=== PATIENT | male | born 1970 | race Caucasian/White ===

== ENCOUNTER → 2017-05-11 | Outpatient (CLI) | payer OTHER ==
[2017-05-09 16:03] VITALS: BMI 30.8
[2017-05-11 13:37] VITALS: BP 156/89; PULSE 90; RESP 16
--- NOTE | 2017-05-11 14:27 | P.HPIM ---
History of Present Illness H&P Date: 05/11/17 Chief Complaint: low back pain + RLE pain and weakness This is a 46-year-old patient referred by Dr. Davis for chronic pain in low back and RLE with numbness/tingling and sensation that his RLE is giving out. Patient has been taking medications from primary care physician including [place] medications with some relief. Patient denies adverse drug effects from medications. Patient also denies new-onset weakness, bowel/bladder incontinence , or any other signs or symptoms of cauda equina syndrome. There are no signs of acute intoxication, and no indications of medication diversion or overuse. Patient notes that pain worsens significantly with standing and walking and improves with rest, ice, sitting, and medication. Patient has used several types of medications for pain, including NSAIDS, OPIOIDS, TRAMADOL. Patient HAS NOT had surgery. Patient HAS had injections previously by Dr. Mcknight with relief. Patient HAS had physical therapy recently with limited relief. In addition to above, 13-point review of systems is also negative for chest pain , shortness of breath, changes in vision, changes in hearing, new onset weakness , abdominal pain, diarrhea, extreme fatigue, malaise, fever, skin changes, homicidal or suicidal ideation, or bowel or bladder incontinence. Vital Signs: Reviewed in EMR Gen: WDWN, AAOx3, NAD HEENT: NCAT, EOMI, hearing grossly normal Pulm: resp unlabored Abd: soft, NT, ND Neck: supple, trachea midline ROM in flexion lumbar spine: reduced ROM in extension lumbar spine: reduced Lumbar paravertebral tenderness: + Facet loading: + bilateral SI joint tenderness: + R Eros's test: + R side Straight leg raise: +RLE at 5 degrees Lower extremity: decreased strength RLE dorsi/plantarflexion Neuro: CN II-XII grossly intact, muscle strength lower extremities PRESERVED Past Medical History Past Medical History: Hypertension Additional Past Medical History / Comment(s): LOWER BACK PAIN WITH RADIATION TO LEGS, PAIN IN SHINS, RIGHT FOOT AND LITTLE TOE PAIN. History of Any Multi-Drug Resistant Organisms: None Reported Additional Past Surgical History / Comment(s): SKULL FX WITH SURGERY AT 14 YRS OLD. Past Anesthesia/Blood Transfusion Reactions: No Reported Reaction Past Psychological History: Anxiety Smoking Status: Never smoker Past Alcohol Use History: None Reported Past Drug Use History: Marijuana Additional Drug Use History / Comment(s): STATES MEDICAL MARIJUANA USE. - Past Family History Mother Family Medical History: No Reported History Medications and Allergies Home Medications Medication Instructions Recorded Confirmed Type ALPRAZolam [Xanax] 1 mg PO TID 05/09/17 05/11/17 History HYDROcodone/APAP 10-325MG [[place] 1 tab PO BID 05/09/17 05/11/17 History 10-325] Vitamin B-12 1 tab PO DAILY 05/09/17 05/11/17 History amLODIPine BES/OLMESARTAN MED 1 each PO DAILY 05/09/17 05/11/17 History [Misty 10-40 mg Tablet] Allergies Allergy/AdvReac Type Severity Reaction Status Date / Time No Known Allergies Allergy Verified 05/11/17 13:20 Physical Exam Vitals: Vital Signs Pulse Resp BP Pulse Ox 05/11/17 13:24 90 16 156/89 95 Results Comments: MRI lumbar spine demonstrates posterior central disc herniation causing anterior mass effect on the thecal sac at L4-L5 with mild central canal stenosis. There are also changes of facet arthropathy and disc material extending posteriorly the L5 vertebral body. At the L5-S1 level there is a broad-based posterior disc bulge contacting proximal S1 nerve root possible expressive on the left side greater than the right side. There is circumferential extension of endplate disc complex causing foraminal encroachment as indicated on previous exam. Assessment and Plan (1) Lumbar spinal stenosis Current Visit: Yes Status: Chronic Code(s): M48.061 - SPINAL STENOSIS, LUMBAR REGION WITHOUT NEUROGENIC DYLLAN SNOMED Code(s): 56943330 (2) Lumbar disc herniation Current Visit: Yes Status: Chronic Code(s): M51.26 - OTHER INTERVERTEBRAL DISC DISPLACEMENT, LUMBAR REGION SNOMED Code(s): 200358085 (3) Chronic pain syndrome Current Visit: Yes Status: Chronic Code(s): G89.4 - CHRONIC PAIN SYNDROME SNOMED Code(s): 438693258 Plan: 1. Explanation: Opioid and psychological risk scores were reviewed. Diagnoses , prognoses, and multiple treatment options including but not limited to physical therapy, interventional therapies, adjuvant medical therapies, narcotic medication therapies, and surgery were discussed with the patient and all questions were answered to the patient's satisfaction. 2. Opioid agreement: no opioids prescribed today 3. Counseling: The patient was counseled extensively on BODY MASS INDEX, EXERCISE. Specifically, the patient was instructed regarding the importance of smoking cessation, weight control, and exercise in the context of both chronic pain and overall health. 4. Procedures: LESI series, L4-L5 if possible 5. Consultations: none 6. Investigations: none 7. Medications: none prescribed 8. Disposition: f/u for procedure as scheduled PQRS measures: 1-Patient's medications are documented in the chart. 2-Tobacco use is negative 3-Patient has not had a pneumococcal vaccine. 4-Advanced care planning discussed, patient unable to give. 5-Opioid contract NOT signed with the patient. 6-Pain positive, follow-up visit or procedure scheduled 7-Patient's blood pressure measured and documented, and patient will follow up with the primary care due to hypertension. 8-Patient's weight was measured, and body mass index ABOVE the normal limits, and counseling was done. Patient instructed to follow up with PCP. 9-Patient WAS NOT identified as an unhealthy alcohol user. Time with Patient: Greater than 30
== END | disposition home or self-care (01) ==
LOC: PNWHC3 13:16
PROVIDERS: ATTEND Anesthesiology
DX: G89.4 Chronic pain syndrome (principal); M48.061 Spinal stenosis, lumbar region without neurogenic claudication; M51.26 Other intervertebral disc displacement, lumbar region; I10 Essential (primary) hypertension; F41.9 Anxiety disorder, unspecified; Z79.899 Other long term (current) drug therapy; Z79.1 Long term (current) use of non-steroidal anti-inflammatories (NSAID); Z79.891 Long term (current) use of opiate analgesic
CPT/HCPCS: 99211

== ENCOUNTER → 2017-07-14 | Outpatient (CLI) | payer OTHER ==
--- NOTE | 2017-07-14 16:50 | CONS ---
CONSULTATION DATE OF SERVICE: 07/14/2017 46-year-old gentleman has been evaluated in the Sleep Center for possible obstructive sleep apnea-hypopnea syndrome. HISTORY OF PRESENT ILLNESS/SLEEP WAKE EVALUATION: Patient usual sleep schedule from around 11:00 p.m. until 9:00 a.m. No problems with falling asleep, although he has TV set in bedroom. He snores loudly and wakes up from sleep up to 8 times with dry mouth, sweating and nocturia. In the morning, patient wakes up tired, falling asleep during the day. [place] Sleepiness Scale significantly increased to 12. He has problems with memory, debility, depression and anxiety. PAST MEDICAL HISTORY: Positive for hypertension, anxiety, several nasal fractures. PAST SURGICAL HISTORY: Brain surgery after trauma in 1984. SOCIAL HISTORY: Negative for smoking or using alcohol. MEDICATIONS: Zyvox, amlodipine. REVIEW OF SYSTEMS: Multiple awakenings from sleep, snoring, sleepiness during the day. FAMILY HISTORY: Hypertension, hyperlipidemia, arthritis, asthma, sinus headache, snoring. PHYSICAL EXAM: GENERAL gentleman without distress. VITAL SIGNS BP 147/78, HR 84, RR 16, height 6 foot 2, weight 238, BMI 30.5, temperature 97.6, oxygen saturation on room air 97%. HEENT PERRLA, EOMI, evaluation of oropharynx showed oropharynx moderately low position of soft palate. Short distance between soft palate and pharyngeal wall. Possible nasal septum deviation. Some restriction of nasal breathing. NECK Supple, no JVD. Thyroid is not palpable. LUNGS Clear to percussion and to auscultation. Good air exchange. No wheezing or rhonchi. HEART S1, S2 regular. No murmurs, gallops, or rubs. ABDOMEN Soft and nontender. Bowel sounds are present. No organomegaly appreciated. EXTREMITIES No clubbing or cyanosis. R PROGRAMMER Awake, alert, and oriented X3. Cranial nerves 2 to 7 intact. There is no fasciculation or atrophy. noted. No focal deficits observed. IMPRESSION: 1. Snoring, witnessed episodes of heavy breathing during the sleep, multiple awakenings from sleep up to 8 times with dry mouth and sweating, significant excessive daytime sleepiness. [place] Sleepiness Scale increased to 12. Wide neck. Obstructive sleep apnea-hypopnea syndrome. 2. Mild obesity, BMI 30.5. 3. History of anxiety. 4. Hypertension. 5. 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 The patient still has area on the head, which is not covered by the bone. 6. Status post 2 nasal fractures, possibly nasal septum deviation, some restriction of nasal breathing. PLAN: 1. Polysomnography for evaluation of patient's breathing during sleep. 2. CPAP/BiPAP titration if sleep study confirms obstructive sleep apnea-hypopnea syndrome. 3. Preferable position during sleep on the side. 4. No driving if patient feels any sleepiness. 5. I will see patient for follow up visit to explain results of testing and following plan. Thank you very much for referring this patient for consultation. Sincerely, Royer Olguin MD, PhD, FAASM Diplomat of [employer] Applications Processor of [facility] [place] MMODL / ROCIO: [id number] /
== END | disposition home or self-care (01) ==
LOC: SLEEP 14:04
PROVIDERS: ATTEND Internal Medicine
DX: G47.33 Obstructive sleep apnea (adult) (pediatric) (principal); E66.9 Obesity, unspecified; I10 Essential (primary) hypertension; Z68.30 Body mass index [BMI] 30.0-30.9, adult; Z86.59 Personal history of other mental and behavioral disorders; Z98.890 Other specified postprocedural states; Z99.89 Dependence on other enabling machines and devices; Z79.899 Other long term (current) drug therapy
CPT/HCPCS: 99211

== ENCOUNTER → 2017-09-29 | Outpatient (CLI) | payer OTHER ==
--- NOTE | 2017-09-29 14:58 | SFUN ---
SLEEP CENTER FOLLOW UP NOTE DATE OF SERVICE: 10/02/2017 47-year-old gentleman who has been followed in the Sleep Center for treatment of obstructive sleep apnea-hypopnea syndrome. Recently patient had a polysomnogram and CPAP titration and I discussed results of sleep studies with patient and family in detail. Diagnostic sleep study showed moderate obstructive sleep apnea-hypopnea syndrome. After the patient had titration and his respiration was in controlled with CPAP at 6 cm of water. The patient received CPAP unit and today is his first visit after he started to use CPAP equipment. The patient is able to use CPAP equipment every night for the whole night without significant problems. He sleeps much better, feels much better during the night and during the day. [place] Sleepiness Scale today is only 2. I checked patient's CPAP unit. CPAP pressure is 6 cm of water. Usage is 100% of the time more than 4 hours. Average usage is 7.0 hours. Leak is up to 20 L/minute. Apnea- hypopnea index only 0.5, which is totally perfect. According to family, sometimes patient has mild snoring usually at the moments when his full-face mask goes out of the face and patient feels that medium size of a full-face mask is slightly small for him. MEDICATIONS: Xanax, Amlodipine. PHYSICAL EXAM: GENERAL Patient in no distress. VITAL SIGNS BP 153/87, HR 92, RR 18, weight 237.8, temperature 97.6, oxygen saturation room air 97%. HEENT PERRLA, EOMI, evaluation of oropharynx showed extremely low position of soft palate. NECK Supple, no JVD. Thyroid is not palpable. LUNGS Clear to percussion and to auscultation. Good air exchange. No wheezing or rhonchi. HEART S1, S2 regular. No murmurs, gallops, or rubs. ABDOMEN Soft and nontender. Bowel sounds are present. No organomegaly appreciated. EXTREMITIES No clubbing or cyanosis. DUMPING MACHINE OPERATOR Awake, alert, and oriented X3. Cranial nerves 2 to 7 intact. There is no fasciculation or atrophy. noted. No focal deficits observed. IMPRESSION: 1. Obstructive sleep apnea-hypopnea syndrome; apnea-hypopnea index 16.2 with oxygen desaturation to 81.3% on full control with CPAP. The patient demonstrated great compliance with treatment benefitting from treatment. 2. Mild obesity. 3. History of anxiety. 4. Hypertension. 5. 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 6. Status post two nasal fractures with some restriction of nasal breathing and nasal septum deviation. PLAN: 1. Patient will continue to use CPAP equipment every night for the whole night. 2. I will increase pressure in his CPAP unit to 7 cm of water because of occasional snoring. 3. We will change the size of a full-face mask Simplus from medium to large. 4. Sleep hygiene with regular time in bed for least 8 hours. 5. Watching weight. Thank you very much for allowing me to participate in management of your patient. Sincerely, Royer Olguin MD, PhD, FAASM Diplomat of [employer] Php Web Developer of [facility] [place] MMODL / DEVN: [id number] /
== END | disposition home or self-care (01) ==
LOC: SLEEP 13:39
PROVIDERS: ATTEND Internal Medicine
DX: G47.33 Obstructive sleep apnea (adult) (pediatric) (principal); E66.9 Obesity, unspecified; F41.9 Anxiety disorder, unspecified; I10 Essential (primary) hypertension; Z99.89 Dependence on other enabling machines and devices; Z98.890 Other specified postprocedural states; Z79.899 Other long term (current) drug therapy

== ENCOUNTER → 2018-02-02 | Outpatient (CLI) | payer OTHER ==
--- NOTE | 2018-02-02 16:35 | PN ---
PROGRESS NOTE DATE OF SERVICE: 02/02/2018 47-year-old gentleman has been followed in Sleep Center for treatment of obstructive sleep apnea-hypopnea syndrome. The patient continued to use his CPAP equipment every night for the whole night but recently developed snoring while using the machine and developed some sleepiness and tiredness also during the day, which was fixed before after he was started to use his CPAP treatment in the past. I checked the CPAP unit. Usage is 100% of the nights more than 4 hours. Average usage is 6.4 hours. Pressure is 7 cm of water. Leak is 16 L/minute which is borderline. Apnea-hypopnea index only 0.5, which is normal. [place] Sleepiness Scale today is 5. MEDICATIONS: Xanax, amlodipine. PHYSICAL EXAM: Patient in no distress BP 143/87, HR 89, RR 16, height 6 feet 2-1/2 inches, weight 243.4 pounds, body mass index 30.7, temperature 97.6, oxygen saturation at room air 97%. Oropharynx extremely low position of soft palate. Neck Supple, no JVD. Thyroid is not palpable. LUNGS Clear to percussion and to auscultation. Good air exchange. No wheezing or rhonchi. HEART S1, S2 regular. No murmurs, gallops, or rubs. ABDOMEN Soft and nontender. Bowel sounds are present. No organomegaly appreciated. EXTREMITIES No clubbing or cyanosis. OYSTER FLOATER Awake, alert, and oriented X3. Cranial nerves 2 to 7 intact. There is no fasciculation or atrophy. noted. No focal deficits observed. IMPRESSION: 1. Obstructive sleep apnea-hypopnea syndrome with moderate range. Apnea-hypopnea index 16.2. The patient demonstrated 100% compliance with CPAP therapy, benefitting from treatment. 2. Recently patient develop snoring and more tiredness and sleepiness during the day than before. 3. Mild obesity, patient increased his weight on 6 pounds comparing with the previous visit. 4. History of anxiety. 5. Hypertension. 6. 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 7. Status post nasal fracture with some restriction of nasal breathing and nasal septal deviation. PLAN: 1. I will increase pressure in CPAP unit up to 9 cm of water. 2. Patient will continue to use CPAP equipment every night for the whole night. 3. Watching and losing weight. 4. Sleep hygiene with regular time in bed for at least 8 hours. 5. No driving if feeling sleepiness. 6. We will maintain prescription for all necessary CPAP supplies including mask, tube, filters. Thank you very much for allowing me to participate in management of your patient. Sincerely, Royer Olguin MD, PhD, FAASM Diplomat of [employer] Education Trainer of [facility] [place] MMODL / DEVN: [id number] /
== END | disposition home or self-care (01) ==
LOC: SLEEP 15:20
PROVIDERS: ATTEND Internal Medicine
DX: G47.33 Obstructive sleep apnea (adult) (pediatric) (principal); E66.9 Obesity, unspecified; F41.9 Anxiety disorder, unspecified; I10 Essential (primary) hypertension; J34.2 Deviated nasal septum; Z99.89 Dependence on other enabling machines and devices; Z79.899 Other long term (current) drug therapy; Z98.890 Other specified postprocedural states; Z87.81 Personal history of (healed) traumatic fracture; Z87.828 Personal history of other (healed) physical injury and trauma; Z68.30 Body mass index [BMI] 30.0-30.9, adult

== ENCOUNTER → 2018-10-21 | Outpatient (CLI) | payer OTHER ==
--- NOTE | 2018-10-22 21:21 | MR ---
EXAMINATION TYPE: MR lumbar spine wo con DATE OF EXAM: 10/21/2018 COMPARISON: MRI lumbar spine February 02, 2017 HISTORY: Chronic low back pain with exacerbation and radiculopathy per order TECHNIQUE: Multiplanar, multisequence imaging of the lumbar spine is performed without IV contrast. FINDINGS: Sagittal images of the lumbar spine show vertebral body heights and alignment to remain sat isfactory. There is stable grade 1 retrolisthesis L4 on L5. Persistent disc desiccation L4-L5 and L5- S1 levels with moderate disc space narrowing most prominent posteriorly and vacuum disc phenomenon re demonstrated L5-S1 level. The conus medullaris is normal in position and signal ending superior L1 l evel. The bone marrow signal intensity is within normal limits. Axial images show the T12-L1, L1-L2, L2-L3, and L3-L4 levels all to remain within normal limits. Axial images at the L4-L5 level redemonstrated right central disc extrusion extending inferiorly and spondylolisthesis. This effaces the anterior thecal sac. Bilateral neuroforamina are patent. Mild fac et degenerative changes bilaterally are redemonstrated. Axial images at the L5-S1 level show larger left paracentral disc protrusion but prominence of epidur al fat. Spinal canal is preserved. Bilateral neural foramina are patent. No definitive S1 effacement, encroachment near left S1 anterior margin identified sagittal image 6 and axial image 2. No suspicious incidental retroperitoneal findings. Paraspinal muscle bulk is preserved. IMPRESSION: Persistent spondylolisthesis and degenerative changes L4-L5 and degenerative changes L5-S 1 level. I do suspect some progression in disc herniation L5-S1 level but no definitive exiting nerve root encroachment.
== END | disposition home or self-care (01) ==
LOC: RADMRIMAIN 12:29
PROVIDERS: ATTEND Family Medicine
DX: M43.16 Spondylolisthesis, lumbar region (principal); M47.816 Spondylosis without myelopathy or radiculopathy, lumbar region; M47.817 Spondylosis without myelopathy or radiculopathy, lumbosacral region
CPT/HCPCS: 72148

== ENCOUNTER → 2019-01-18 | Outpatient (CLI) | payer OTHER ==
--- NOTE | 2019-01-18 16:32 | PN ---
PROGRESS NOTE DATE OF SERVICE: 01/18/2019 This patient is a 48-year-old gentleman who has been followed in Sleep Center for treatment of obstructive sleep apnea-hypopnea syndrome. The patient continues to use his CPAP equipment every night. He feels that the pressure now is high for him and feels some difficulties. [place] Sleepiness Scale today is 4. No snoring with the machine. I checked his CPAP unit. CPAP pressure is 9 cm of water. Usage is 24/30 nights for more than 4 hours with average usage 4.8 hours per night. Leak is 16 L/minute, which is borderline. Apnea-hypopnea index is only 0.4, which is absolutely normal. MEDICATIONS: Xanax and amlodipine. PHYSICAL EXAMINATION: GENERAL: A pleasant patient in no distress. VITAL SIGNS: BP 174/96, HR 88, RR 16. Height 6 feet 3 inches, weight 245.6, body mass index 30.6, temperature 97.9, oxygen saturation at room air 97%. HEENT: PERRLA, EOMI. Evaluation of oropharynx showed tongue protrudes midline. Extremely low position of soft palate. Mallampati IV. NECK: Supple. No JVD. Thyroid is not palpable. LUNGS: Clear to percussion and to auscultation. Good air exchange. No wheezing or rhonchi. HEART: S1, S2 regular. No murmurs, gallops or rubs. ABDOMEN: Soft and nontender. Bowel sounds are present. No organomegaly. EXTREMITIES: No clubbing or cyanosis. BLOW TORCH BURNER: Awake, alert, and oriented X3. Cranial nerves 2 to 7 intact. There is no fasciculation or atrophy. noted. No focal deficits observed. IMPRESSION: 1. Obstructive sleep apnea-hypopnea syndrome. The patient has demonstrated great compliance with treatment, benefitting from treatment. 2. Mild obesity. 3. History of anxiety. 4. Hypertension. 5. 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 6. Status post nasal fracture; some restriction of nasal breathing and nasal septum deviation. PLAN: 1. Pressure will be adjusted down to 8 cm of water. 2. Losing weight. 3. Sleep hygiene with regular time in bed for at least 7-1/2 to 8 hours. 4. No driving if feeling any sleepiness. 5. I will maintain all necessary prescriptions for CPAP supplies, including full-face mask, tube, filters. 6. Follow-up visit in one year, or earlier if the patient has any problems. Thank you very much for allowing me to participate in the management of your patient. Sincerely, Royer Olguin MD, PhD, FAASM Diplomat of [employer] Manhole Stripper of [facility] [place] MMBRITNEYL / DEVN: [id number] /
== END | disposition home or self-care (01) ==
LOC: SLEEP 15:19
PROVIDERS: ATTEND Internal Medicine
DX: G47.33 Obstructive sleep apnea (adult) (pediatric) (principal); E66.9 Obesity, unspecified; I10 Essential (primary) hypertension; Z68.30 Body mass index [BMI] 30.0-30.9, adult; J34.2 Deviated nasal septum; Z86.59 Personal history of other mental and behavioral disorders; Z87.820 Personal history of traumatic brain injury; Z87.81 Personal history of (healed) traumatic fracture; Z99.89 Dependence on other enabling machines and devices; Z79.899 Other long term (current) drug therapy

== ENCOUNTER → 2020-04-02 | Outpatient (CLI) | payer OTHER ==
--- NOTE | 2020-04-02 20:55 | SFUN ---
SLEEP CENTER FOLLOW UP NOTE DATE OF SERVICE: 04/02/2020 This is a 49-year-old gentleman who has been followed in Sleep Center for treatment of obstructive sleep apnea-hypopnea syndrome. The patient is successfully continuing to use his CPAP equipment every night for the whole night. Occasionally he has snoring while using his CPAP equipment. [place] Sleepiness Scale today 7, which is in normal range. I checked his CPAP unit. CPAP pressure is 8 cm of water. Usage is 26/30 nights for more than 4 hours. Average usage is 6.1 hours per night. Leak is 8 L/minute. Apnea- hypopnea index is perfect at 0.5. MEDICATIONS: Amlodipine, hydrocodone. PHYSICAL EXAMINATION: GENERAL: A pleasant patient in no distress. VITAL SIGNS: BP 191/100, HR 91, RR 18, height 6 feet 2-1/2 inches, weight 239 pounds. Body mass index 30.6, temperature 97.7, oxygen saturation at room air 96%. HEENT: PERRLA, EOMI. Evaluation of oropharynx showed tongue protrudes midline. Extremely low position of soft palate. Mallampati IV. NECK: Supple. No JVD. Thyroid is not palpable. LUNGS: Clear to percussion and to auscultation. Good air exchange. No wheezing or rhonchi. HEART: S1, S2 regular. No murmurs, gallops or rubs. ABDOMEN: Soft and nontender. Bowel sounds are present. No organomegaly appreciated. EXTREMITIES: No clubbing or cyanosis. BRANCH EMPLOYMENT COORDINATOR: Awake, alert, and oriented X3. Cranial nerves 2 to 7 intact. There is no fasciculation or atrophy. noted. No focal deficits observed. IMPRESSION: 1. Obstructive sleep apnea-hypopnea syndrome. Patient demonstrated great compliance with treatment, benefitting from treatment. Normal respiration on CPAP. Occasional snoring with CPAP. 2. Mild obesity. 3. History of anxiety. 4. Hypertension. 5. 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 6. Status post nasal fracture with restriction of nasal breathing. PLAN: 1. I increased pressure in CPAP unit to 9 cm of water because of occasional snoring. 2. Patient will continue to use PAP equipment every night for the whole night. 3. Sleep hygiene with regular time in bed for at least 7-1/2 to 8 hours. 4. Precautions related to driving. No driving if feeling sleepiness. 5. I will maintain all necessary prescription for PAP supplies including mask, tube, filters. 6. Watching weight. 7. No driving if feeling sleepiness. 8. Follow-up visit in one year or earlier if patient has any problems. Thank you very much for allowing me to participate in the management of your patient. Sincerely, Royer Olguin MD, PhD, FAASM Diplomat of [employer] Design Director of [facility] [place] MMODL / DEVN: [id number] /
== END | disposition home or self-care (01) ==
LOC: SLEEP 14:58
PROVIDERS: ATTEND Internal Medicine
DX: G47.33 Obstructive sleep apnea (adult) (pediatric) (principal); I10 Essential (primary) hypertension; E66.01 Morbid (severe) obesity due to excess calories; Z86.59 Personal history of other mental and behavioral disorders; Z98.890 Other specified postprocedural states; Z99.89 Dependence on other enabling machines and devices; Z79.899 Other long term (current) drug therapy; Z79.891 Long term (current) use of opiate analgesic

== ENCOUNTER → 2021-10-22 | Outpatient (CLI) | payer OTHER ==
--- NOTE | 2021-10-22 10:44 | P.PN ---
Subjective DATE: 10/22/2021 FOLLOW UP VISIT. Patient with obstructive sleep apnea hypopnea syndrome return to sleep center for follow-up visit. Information from previous visit have been reviewed. Patient is using PAP equipment every night for the whole night, getting PAP supplies in time. The patient does not have significant problems with the mask, PAP unit and humidification. [place] sleepiness scale is 8. I checked PAP unit ,air filter is in good shape. PAP unit pressure 9 cm H2O. Usage is 80 % for more then 4 hours, average 6.4 hours per night. Leak is 18 l/m, which is in acceptable range. Apnea Hypopnea Index is 1.1, which is normal. MEDICATIONS:1. Amlodipine benazepril 1040 milligrams once a day During physical exam: GENERAL: A pleasant patient without any distress. VITAL SIGNS: BP 189/114, HR 86, RR 18 , weight 241.0, temperature 97.9, oxygen saturation at room air 96 % . HEENT: PERRLA, EOMI.low position of soft palate, Mallapati 4 . NECK: Supple. No JVD. LUNGS: Clear to percussion and to auscultation. Good air exchange. No wheezing or rhonchi. HEART: S1, S2 regular. ABDOMEN: Soft and nontender.[] EXTREMITIES: No clubbing or cyanosis. BREAD BAKER: Awake, alert, and oriented x3. No focal deficit. Impressions: 1. Obstructive sleep apnea-hypopnea syndrome. Patient demonstrated great compliance with treatment, benefiting from treatment. 2. Hypertension. 3. History of anxiety. 4. 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 5. Status post nasal fracture with restriction of nasal breathing. 6. Mild obesity. Plan: 1. Continue using PAP equipment every night for the whole night. 2. To change air filter at least 1-2 times per month. 3. PAP unit should stay lower then position of the head. 4. Advised patient to remove all remaining water from humidifier canister daily and make it dry after each usage. Refill canister with fresh distilled water before each usage. 5. Sleep hygiene with regular time in bed for at least 8 hours. 6. Precautions related to driving. No driving if feel any sleepiness. 7. I will maintain prescription for PAP supplies including mask, tube, filters. 8. Follow up visit in 6 months or earlier if patient has any problems. 9. Watching weight. 10. Low sodium diet, monitoring blood pressure. Thank you very much for allowing me to participate in the management of your patient. Royer Olguin MD, PhD, FAASM. Diplomat of [place] [employer], Sleep Medicine Board by [place] [employer] Ventilator Specialist of [facility] [place]
== END ==
LOC: SLEEP 09:50
PROVIDERS: ATTEND Internal Medicine
DX: G47.33 Obstructive sleep apnea (adult) (pediatric) (principal); I10 Essential (primary) hypertension; F41.9 Anxiety disorder, unspecified; Z98.890 Other specified postprocedural states; E66.9 Obesity, unspecified; Z99.89 Dependence on other enabling machines and devices

== ENCOUNTER → 2022-12-09 | Outpatient (CLI) | payer OTHER ==
--- NOTE | 2022-12-09 17:34 | P.PN ---
Subjective DATE: 12/09/2022 FOLLOW UP VISIT. Patient with obstructive sleep apnea hypopnea syndrome return to sleep center for follow-up visit. Information from previous visit have been reviewed. Patient is using PAP equipment every night for the whole night, getting PAP supplies in time. Patient feels bloated enough pressure in his mask while he is starting to use CPAP. According to his patient occasionally have snoring during the night. [place] sleepiness scale is 4, which is normal. I checked information from PAP unit and discussed it with patient and family. PAP unit pressure 9 cm H2O. Usage is 97 % for more then 4 hours, average 6.5 hours per night. Leak is 33.1 l/m, which is in acceptable range. Apnea Hypopnea Index is 0.4, which is normal. MEDICATIONS:1. Lisinopril/hydrochlorothiazide 10-12.5 mg once a day 2. Mlzlkyowtdc52/325 mg 3 times a day During physical exam: GENERAL: A pleasant patient without any distress. VITAL SIGNS: BP 162/91, HR 98, RR 14, weight 234.4, temperature 98.2, oxygen saturation at room air 97 % . HEENT: PERRLA, EOMI.low position of soft palate, Mallapati 4 . NECK: Supple. No JVD. LUNGS: Clear to percussion and to auscultation. Good air exchange. No wheezing or rhonchi. HEART: S1, S2 regular. ABDOMEN: Soft and nontender.[] EXTREMITIES: No clubbing or cyanosis. MANAGER COMPLIANCE: Awake, alert, and oriented x3. No focal deficit. Impressions: 1. Obstructive sleep apnea-hypopnea syndrome. Patient demonstrated great compliance with treatment, benefiting from treatment. Occasional snoring with CPAP. 2. Hypertension. 3. History of anxiety. 4. 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 5. Status post nasal fracture with restriction of nasal breathing. I changed parameters in CPAP unit to AutoPAP 7-12 centimeters of water. Ramp will start from the pressure 7 cm of water. Patient tried CPAP unit in the office and she feels comfortable with that level of pressure. Plan: 1. Continue using PAP equipment every night for the whole night. 2. To change air filter at least 1-2 times per month. 3. PAP unit should stay lower then position of the head. 4. Advised patient to remove all remaining water from humidifier canister daily and make it dry after each usage. Refill canister with fresh distilled water before each usage. 5. Sleep hygiene with regular time in bed for at least 8 hours. 6. Precautions related to driving. No driving if feel any sleepiness. 7. I will maintain prescription for PAP supplies including mask, tube, filters. 8. Follow up visit in 6 months or earlier if patient has any problems. 9. Watching weight. Thank you very much for allowing me to participate in the management of your patient. Royer Olguin MD, PhD, FAASM. Diplomat of [place] [employer], Sleep Medicine Board by [employer] Systems Test Engineer of [place] [facility] [place]
== END ==
LOC: 3 N SLEEP 16:02
PROVIDERS: ATTEND Internal Medicine
DX: G47.33 Obstructive sleep apnea (adult) (pediatric) (principal); I10 Essential (primary) hypertension; F41.9 Anxiety disorder, unspecified; Z98.890 Other specified postprocedural states; Z99.89 Dependence on other enabling machines and devices; Z79.899 Other long term (current) drug therapy
CPT/HCPCS: 99212

== ENCOUNTER → 2023-07-07 | Outpatient (CLI) | payer OTHER ==
--- NOTE | 2023-07-07 17:00 | P.PROGSL ---
Subjective DATE: 07/07/2023 FOLLOW UP VISIT. Patient with obstructive sleep apnea hypopnea syndrome return to sleep center for follow-up visit. Information from previous visit have been reviewed. Patient is using PAP equipment every night for the whole night, getting PAP supplies in time. The patient does not have significant problems with the mask, PAP unit and humidification. [place] sleepiness scale is 4, which is normal. I checked information from PAP unit. PAP unit pressure 7-12, average 8.7 cm H2O. Usage is 97% for more then 4 hours, average 6 hours per night. Leak is 9.8 l/m, which is in acceptable range. Apnea Hypopnea Index is 0.6, which is normal. MEDICATIONS: Please see below During physical exam: GENERAL: A pleasant patient without any distress. VITAL SIGNS: Please see below, weight 241.8 pounds. HEENT: PERRLA, EOMI.low position of soft palate, Mallapati 4 . NECK: Supple. No JVD. LUNGS: Clear to percussion and to auscultation. Good air exchange. No wheezing or rhonchi. HEART: S1, S2 regular. ABDOMEN: Soft and nontender.[] EXTREMITIES: No clubbing or cyanosis. UTILIZATION MANAGEMENT NURSE: Awake, alert, and oriented x3. No focal deficit. Impressions: 1. Obstructive sleep apnea-hypopnea syndrome. Patient demonstrated great compliance with treatment, benefiting from treatment. 2. Obesity, BMI 31.3, patient increased his weight on 7 pounds comparing with previous visit. 3. Hypertension. 4. History of anxiety. 5. Status post nasal fracture with restriction of nasal breathing. 6. 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 Plan: 1. Continue using PAP equipment every night for the whole night. 2. To change air filter at least 1-2 times per month. 3. PAP unit should stay lower then position of the head. 4. Advised patient to remove all remaining water from humidifier canister daily and make it dry after each usage. Refill canister with fresh distilled water before each usage. 5. Sleep hygiene with regular time in bed for at least 8 hours. 6. Precautions related to driving. No driving if feel any sleepiness. 7. I will maintain prescription for PAP supplies including mask, tube, filters. 8. Watching and losing weight. 9. Follow up visit in 6 months or earlier if patient has any problems. Thank you very much for allowing me to participate in the management of your patient. Royer Olguin MD, PhD, FAASM. Diplomat of [place] [employer], Sleep Medicine Board by [place] [employer] Flash Drier Operator of [place] [facility] [place] Objective - Vital Signs Vital Signs: Vital Signs Temp 97.8 F 07/07/23 16:47 Pulse 75 07/07/23 16:47 Resp 16 07/07/23 16:47 BP 171/105 07/07/23 16:47 Pulse Ox 98 07/07/23 16:47 FiO2 Intake & Output 07/06/23 07/07/23 07/07/23 18:59 06:59 18:59 Weight 109.543 kg Home Medications: Home Medications Medication Instructions Recorded Confirmed Type ALPRAZolam [Xanax] 1 mg PO TID 05/09/17 05/11/17 History HYDROcodone/APAP 10-325MG [[place] 1 tab PO BID 05/09/17 07/07/23 History 10-325] Vitamin B-12 1 tab PO DAILY 05/09/17 05/11/17 History amLODIPine BES/OLMESARTAN MED 1 each PO DAILY 05/09/17 05/11/17 History [Misty 10-40 mg Tablet] Lisinopril-Hctz 10-12.5 mg 1 tab PO DAILY 07/07/23 07/07/23 History [Zestoretic 10-12.5]
[2023-07-07 17:18] VITALS: BP 171/105; PULSE 75; RESP 16; TEMP 97.8
== END ==
LOC: 3 N SLEEP 16:23
PROVIDERS: ATTEND Internal Medicine
DX: G47.33 Obstructive sleep apnea (adult) (pediatric) (principal); E66.9 Obesity, unspecified; I10 Essential (primary) hypertension; F41.9 Anxiety disorder, unspecified; Z98.890 Other specified postprocedural states; Z87.81 Personal history of (healed) traumatic fracture; Z99.89 Dependence on other enabling machines and devices; Z68.31 Body mass index [BMI] 31.0-31.9, adult; Z79.899 Other long term (current) drug therapy
CPT/HCPCS: 99212

== ENCOUNTER → 2024-01-19 | Outpatient (CLI) | payer OTHER ==
[2024-01-19 15:48] VITALS: BP 169/92; PULSE 99; RESP 16; TEMP 97.9
--- NOTE | 2024-01-19 17:10 | P.PROGSL ---
Subjective DATE: 01/19/2024 FOLLOW UP VISIT. Patient with obstructive sleep apnea hypopnea syndrome return to sleep center for follow-up visit. Information from previous visit have been reviewed. Patient is using PAP equipment every night for the whole night, getting PAP supplies in time. The patient does not have significant problems with the mask, PAP unit and humidification. [place] sleepiness scale is 6. I checked PAP unit. PAP unit is old and noisy PAP unit pressure 7-12, average 9.3 cm H2O. Usage is 98% for more then 4 hours, average 6.6 hours per night. Leak is 13 l/m, which is in acceptable range. Apnea Hypopnea Index is 0.5, which is normal. MEDICATIONS have been reviewed, please see below. During physical exam: GENERAL: A pleasant patient without any distress. VITAL SIGNS: Please see below, weight is 247.4 lbs. HEENT: PERRLA, EOMI.low position of soft palate, Mallapati 4 . NECK: Supple. No JVD. LUNGS: Clear to percussion and to auscultation. Good air exchange. No wheezing or rhonchi. HEART: S1, S2 regular. ABDOMEN: Soft and nontender.[] EXTREMITIES: No clubbing or cyanosis. GROUND OPERATIONS SUPERVISOR: Awake, alert, and oriented x3. No focal deficit. Impressions: 1. Obstructive sleep apnea-hypopnea syndrome. Patient demonstrated great compliance with treatment, benefiting from treatment. 2. Hypertension. 3. Mild obesity, BMI 31.9, patient increased weight on 6 pounds comparing with previous visit. 4. History of anxiety. 5. Status post nasal fracture with restriction of nasal breathing. 6. 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 Plan: 1. Continue using PAP equipment every night for the whole night. Prescription to replace CPAP unit. CPAP unit is old and noisy. 2. Sleep hygiene with regular time in bed for at least 7.5-8 hours 3. PAP unit should stay lower then position of the head. 4. Advised patient to remove all remaining water from humidifier canister daily and make it dry after each usage. Refill canister with fresh distilled water before each usage. 5. Watching weight. 6. Precautions related to driving. No driving if feel any sleepiness. 7. I will maintain prescription for PAP supplies including mask, tube, filters. 8. Follow up visit in 1-3 months after patient will get new CPAP unit to document compliance and to make any necessary adjustments related to mask fitting pressure and humidification. Thank you very much for allowing me to participate in the management of your patient. Royer Olguin MD, PhD, FAASM. Diplomat of [place], Sleep Medicine Board by [employer] Balloon Pilot of [place] [facility] [place] Objective - Vital Signs Vital Signs: Vital Signs Temp 97.9 F 01/19/24 15:43 Pulse 99 01/19/24 15:43 Resp 16 01/19/24 15:43 BP 169/92 01/19/24 15:43 Pulse Ox 97 01/19/24 15:43 FiO2 Intake & Output 01/18/24 01/19/24 01/19/24 18:59 06:59 18:59 Weight 112.151 kg Home Medications: Home Medications Medication Instructions Recorded Confirmed Type ALPRAZolam [Xanax] 1 mg PO TID 05/09/17 05/11/17 History HYDROcodone/APAP 10-325MG [[place] 1 tab PO BID 05/09/17 01/19/24 History 10-325] Vitamin B-12 1 tab PO DAILY 05/09/17 05/11/17 History amLODIPine BES/OLMESARTAN MED 1 each PO DAILY 05/09/17 05/11/17 History [Misty 10-40 mg Tablet] Lisinopril-Hctz 10-12.5 mg 1 tab PO DAILY 07/07/23 01/19/24 History [Zestoretic 10-12.5]
== END ==
LOC: 3 N SLEEP 14:58
PROVIDERS: ATTEND Internal Medicine
DX: G47.33 Obstructive sleep apnea (adult) (pediatric) (principal); I10 Essential (primary) hypertension; E66.9 Obesity, unspecified; Z68.31 Body mass index [BMI] 31.0-31.9, adult; Z86.59 Personal history of other mental and behavioral disorders; Z98.890 Other specified postprocedural states
CPT/HCPCS: 99212

== ENCOUNTER → 2024-05-03 | Outpatient (CLI) | payer OTHER ==
[2024-05-03 16:15] VITALS: BP 188/119; PULSE 84; RESP 16; TEMP 97.6
--- NOTE | 2024-05-03 16:36 | P.PROGSL ---
Subjective DATE: 05/03/2024 FOLLOW UP VISIT. Patient with obstructive sleep apnea hypopnea syndrome return to sleep center for follow-up visit. Information from previous visit have been reviewed. This is first visit after patient received new CPAP unit. Patient is using PAP equipment every night for the whole night, getting PAP supplies in time. The patient does not have significant problems with the mask, PAP unit and humidification. [place] sleepiness scale is 5. I checked information from PAP unit. PAP unit pressure 7-12, average 8.8 cm H2O. patient feels that sometimes during the night pressure is a little bit low. Usage is 100% for more then 4 hours, average 0.5 hours per night. Leak is 24.8 l/m, which is in acceptable range. Apnea Hypopnea Index is 0.7, which is normal. MEDICATIONS have been reviewed, please see below. During physical exam: GENERAL: A pleasant patient without any distress. VITAL SIGNS: Please see below, weight is 248 lbs. HEENT: PERRLA, EOMI.low position of soft palate, Mallapati 4 . NECK: Supple. No JVD. LUNGS: Clear to percussion and to auscultation. Good air exchange. No wheezing or rhonchi. HEART: S1, S2 regular. ABDOMEN: Soft and nontender.[] EXTREMITIES: No clubbing or cyanosis. MIXER BLENDER: Awake, alert, and oriented x3. No focal deficit. Impressions: 1. Obstructive sleep apnea-hypopnea syndrome. Patient demonstrated great compliance with treatment, benefiting from treatment. 2. Hypertension. 3. Mild obesity. 4. History of anxiety. 5. Status post nasal fracture with restriction of nasal breathing. 6. 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 I changed AutoPap to CPAP with a pressure 10 cm of water and I changed a ramp from auto to 10 minutes starting at 6 cm of water. Plan: 1. Continue using PAP equipment every night for the whole night. 2. Sleep hygiene with regular time in bed for at least 7.5-8 hours 3. PAP unit should stay lower then position of the head. 4. Advised patient to remove all remaining water from humidifier canister daily and make it dry after each usage. Refill canister with fresh distilled water before each usage. 5. Watching weight. 6. Precautions related to driving. No driving if feel any sleepiness. 7. I will maintain prescription for PAP supplies including mask, tube, filters. 8. Follow up visit in 8 months or earlier if patient has any problems. Thank you very much for allowing me to participate in the management of your patient. Royer Olguin MD, PhD, FAASM. Diplomat of [place] [employer] of Sleep Medicine, Sleep Medicine Board by [place] Board of Internal Medicine Manager Gyn of [facility] [place] Objective - Vital Signs Vital Signs: Vital Signs Temp 97.6 F 05/03/24 16:14 Pulse 84 05/03/24 16:14 Resp 16 05/03/24 16:14 BP 188/119 05/03/24 16:14 Pulse Ox 96 05/03/24 16:14 FiO2 Intake & Output 05/02/24 05/03/24 05/03/24 18:59 06:59 18:59 Weight 112.491 kg Home Medications: Home Medications Medication Instructions Recorded Confirmed Type ALPRAZolam [Xanax] 1 mg PO TID 05/09/17 05/11/17 History HYDROcodone/APAP 10-325MG [[place] 1 tab PO BID 05/09/17 01/19/24 History 10-325] Vitamin B-12 1 tab PO DAILY 05/09/17 05/11/17 History amLODIPine BES/OLMESARTAN MED 1 each PO DAILY 05/09/17 05/11/17 History [Misty 10-40 mg Tablet] Lisinopril-Hctz 10-12.5 mg 1 tab PO DAILY 07/07/23 01/19/24 History [Zestoretic 10-12.5]
== END ==
LOC: 3 N SLEEP 15:57
PROVIDERS: ATTEND Internal Medicine
DX: G47.33 Obstructive sleep apnea (adult) (pediatric) (principal); E66.9 Obesity, unspecified; I10 Essential (primary) hypertension; Z86.59 Personal history of other mental and behavioral disorders; Z98.890 Other specified postprocedural states
CPT/HCPCS: 99212